=== PATIENT | male | born 1990 | race African-American/Black ===

== ENCOUNTER 2021-02-28 03:11 | Emergency (ER) | payer SELFPAY ==
[~2021-02-28] VITALS: Ht 188 cm; Wt 75.0 kg
[2021-02-28] MEDS ORDERED: SODIUM CHLORIDE FLUSH 10ML SYR IVF ONE (03:30)
[2021-02-28] MEDS ORDERED: LIDOCAINE 1%, 10ML INFIL ONE (03:30)
[2021-02-28] MEDS ORDERED: SODIUM CHLORIDE 0.9% 1,000ML IVBOLUS ONE (03:30)
--- NOTE | 2021-02-28 03:31 | NUR ---
PT ARRIVED C R CALF DRESSED. HALO NOTED TO DRESSING. ASSISTED TO BED, CHANGED INTO GOWN. BLEEDING CONTROLLED, PT STATES HE CAUGHT A RIDE WITH A DIRECTOR CAREER WHO DROPPED HIM OFF HERE.
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
--- NOTE | 2021-02-28 03:34 | NUR ---
TITLE CAMERA OPERATOR: FAMILIA AGUILAR CALLED AND HERE NOW TO SPEAK WITH PT.
[2021-02-28] MEDS ORDERED: LIDOCAINE-MPF 1%, 5ML ONE (03:41)
[2021-02-28 05:06] VITALS: BP 134/63
--- NOTE | 2021-02-28 05:15 | NUR ---
pt called for ride. wheeled to lobby by staff s incident. dressing cdi. reviewed dc inst & rx c pt. verbalizes understanding.
== END 2021-02-28 05:53 | disposition home or self-care (01) ==
LOC: ED 05:15
DX: S82.451B Displaced comminuted fracture of shaft of right fibula, initial encounter for open fracture type I or II (principal); F11.10 Opioid abuse, uncomplicated; Z72.9 Problem related to lifestyle, unspecified; X93.XXXA Assault by handgun discharge, initial encounter; Y93.89 Activity, other specified; Y92.89 Other specified places as the place of occurrence of the external cause; Y99.8 Other external cause status
CPT/HCPCS: 29515; 73590; 96360; 99283; J3490; J7030